=== PATIENT | female | born 1990 | race American Indian/Alaskan Native ===

== ENCOUNTER 2016-10-19 20:42 | Emergency (ER) | payer SELFPAY ==
[2016-10-19 20:42] VITALS: BMI 46.8
[2016-10-19 20:48] VITALS: BP 136/82; PULSE 120; RESP 16; TEMP 97.9; O2SAT 99
[2016-10-19] MEDS ORDERED: Sodium Chloride 0.9% 1,000 ML IV STA (21:13)
--- NOTE | 2016-10-19 21:17 | ED PDOC ---
HPI: Female Pain Time Seen by Provider: 10/19/16 21:02 Chief Complaint (Nursing): Female Genitourinary Chief Complaint (Provider): vaginal bleeding History Per: Patient History/Exam Limitations: no limitations Onset/Duration Of Symptoms: Days (2 weeks) Current Symptoms Are (Timing): Still Present Quality Of Discomfort: Cramping, "Pain" Additional History Per: Patient Additional Complaint(s): 26 y/o female presents with vaginal bleeding x 2 weeks. Associated pelvic cramping/pain. Patient notes today she began to feel weak, shaky, and lightheaded, which prompted ED visit. Patient notes periods usually regular; last 4-5 days then stop. Patient notes bleeding continued since onset of menses 2 weeks ago, using 6 pads daily. Denies headache, nausea/vomiting, chest pain, shortness of breath, palpitations, changes in bowel movements. Abnormal Vaginal Bleeding: Yes Last Menstral Period: 10/05/16 Past Medical History Reviewed: Historical Data, Nursing Documentation, Vital Signs Vital Signs: Last Vital Signs Temp 97.9 F 10/19/16 20:46 Pulse 120 H 10/19/16 20:46 Resp 16 10/19/16 20:46 BP 136/82 10/19/16 20:46 Pulse Ox 99 10/19/16 20:46 - Medical History PMH: Anemia, Asthma, Gastritis - Family History Family History: States: Diabetes, Hypertension - Immunization History Hx Tetanus Toxoid Vaccination: No Hx Influenza Vaccination: Yes Hx Pneumococcal Vaccination: No - Home Medications Home Medications: Ambulatory Orders Medication Instructions Recorded Albuterol HFA [Ventolin HFA 90 1 - 2 puff IH Q6 PRN #1 inhaler 08/05/16 mcg/actuation (8 g)] Omeprazole 20 mg PO DAILY #30 capsule. 09/05/16 Ondansetron [Zofran] 4 mg PO Q8H #12 tab 09/05/16 Naproxen [Naprosyn] 500 mg PO Q12 PRN #20 tablet 10/20/16 - Allergies Allergies/Adverse Reactions: Allergies Allergy/AdvReac Type Severity Reaction Status Date / Time acetaminophen [From Vicodin] AdvReac ITCHING Verified 11/07/15 12:20 hydrocodone bitartrate AdvReac ITCHING Verified 11/07/15 12:20 [From Vicodin] shrimp AdvReac ITCHING Verified 11/07/15 12:20 Review of Systems ROS Statement: Except As Marked, All Systems Reviewed And Found Negative Genitourinary Female: Positive for: Vaginal Bleeding, Pelvic Pain Physical Exam - Reviewed Nursing Documentation Reviewed: Yes Vital Signs Reviewed: Yes - Physical Exam Appears: Positive for: Well, Non-toxic, No Acute Distress Head Exam: Positive for: ATRAUMATIC, NORMAL INSPECTION, NORMOCEPHALIC Skin: Positive for: Normal Color Eye Exam: Positive for: Normal appearance ENT: Positive for: Normal ENT Inspection Cardiovascular/Chest: Positive for: Regular Rate, Rhythm Respiratory: Positive for: Normal Breath Sounds Gastrointestinal/Abdominal: Positive for: Bowel Sounds, Soft, Tenderness ( suprapubic) Pelvic Exam: Positive for: External Exam Normal, Speculum Exam Normal, No Cerv. Motion Tender, Other (exam chaperoned by operating theatre technician Sunshine). Negative for: Active Bleeding Back: Positive for: Normal Inspection Extremity: Positive for: Normal ROM Neurologic/Psych: Positive for: Alert, Oriented - Laboratory Results Result Diagrams: 10/19/16 22:59 10/19/16 22:59 Urine POC: Negative - ECG ECG: Positive for: Viewed By Me (reviewed by ED attending) ECG Rhythm: Positive for: Sinus Rhythm O2 Sat by Pulse Oximetry: 99 - Progress ED Course And Treament: labs, urine, pelvis u/s, tramadol, IV fluids EXAM: US Pelvis Complete. CLINICAL HISTORY: 26 years old, female; Pain and signs and symptoms; Menstruation abnormalities; Excessive menstruation; Other: Prolonged; Pelvic pain; Additional info: Pelvic pain, prolonged vaginal bleeding TECHNIQUE: Real-time pelvic ultrasound (complete) with image documentation. COMPARISON: No relevant prior studies available. FINDINGS: Uterus/cervix: 4.3 x 4.0 x 3.9 cm uterine mass. Endometrium: 0.5 cm in thickness. Right ovary: 2.3 x 2.1 x 2.0 cm anechoic lesion. Normal flow. Left ovary: No mass. Normal flow. Free fluid: No significant free fluid. IMPRESSION: 1. Probable fibroid. 2. RIGHT ovarian cyst. 3. Incidental/non-acute findings are described above. On re-eval, patient states she is feeling better; vitals stable. Patient educated on findings, discharged with rx Naproxen. Advised follow up [facility]. Return to ED for worsening/concerning symptoms. Disposition - Clinical Impression Clinical Impression: Uterine fibroid, Vaginal bleeding, Cyst of ovary - Patient ED Disposition Is Patient to be Admitted: No Counseled Patient/Family Regarding: Studies Performed, Diagnosis, Need For Followup, Rx Given - Disposition [facility] Disposition: Routine/Home Disposition Time: 01:04 Condition: IMPROVED Prescriptions: Naproxen [Naprosyn] 500 mg PO Q12 PRN #20 tablet PRN Reason: Pain, Moderate (4-7) Instructions: Dysfunctional Uterine Bleeding (ED), Uterine Fibroids (ED)
[2016-10-19] MEDS ORDERED: Albuterol-Ipratrop 3 mg / 0.5 (3 ml) UD ONE (22:54)
[2016-10-19] MEDS ORDERED: Albuterol-Ipratrop 3 mg / 0.5 (3 ml) UD IH STA (22:56)
[2016-10-19 23:13] LABS: BASO # 0.1 K/uL (0.0-0.2); EOS # 0.1 K/uL (0.0-0.7); EOS % 1.5 % (0.0-4.0); HEMATOCRIT 35.3 % (34.0-47.0); LYMPH # 3.1 K/uL (1.0-4.3); LYMPH % 33.7 % (20.0-40.0); MEAN CELL VOLUME 75.4 fl (81.0-99.0); MEAN CORPUSCULAR HEMOGLOBIN 24.4 pg (27.0-31.0); MEAN CORPUSCULAR HGB CONC 32.3 g/dL (33.0-37.0); MEAN PLATELET VOLUME 7.9 fl (7.2-11.7); MONO # 0.6 K/uL (0.0-0.8); MONO % 6.6 % (0.0-10.0); NEUT # 5.3 K/uL (1.8-7.0); NEUT % 57.2 % (50.0-75.0); NRBC % 0.1 % (0.0-0.0); RED CELL DISTRIBUTION WIDTH 16.1 % (11.5-14.5); WHITE BLOOD COUNT 9.3 K/uL (4.8-10.8)
[2016-10-19 23:16] LABS: ALKALINE PHOSPHATASE 85 U/L (38-126); ALT/SGPT 36 U/L (9-52); AST/SGOT 46 U/L (14-36); BILIRUBIN,TOTAL 0.5 mg/dl (0.2-1.3); BLOOD UREA NITROGEN 14 mg/dl (7-17); CALCIUM 9.2 mg/dL (8.4-10.2); CARBON DIOXIDE 24 mmol/L (22-30); CHLORIDE 103 mmol/L (98-107); GFR AFRICAN-AMERICAN > 60; GLUCOSE,RANDOM 88 mg/dL (65-105); SODIUM 142 mmol/l (132-148); TOTAL PROTEIN 7.9 G/DL (6.3-8.2)
[2016-10-19 23:37] LABS: RBC URINE 5 /hpf (0-3); URINE BILIRUBIN NEGATIVE (NEGATIVE); URINE BLOOD LARGE (NEGATIVE); URINE COLOR RED (YELLOW); URINE GLUCOSE (UA) NEG (Normal); URINE KETONE NEGATIVE (NEGATIVE); URINE LEUKOCYTE ESTERASE TRACE Leu/uL (Negative); URINE PROTEIN 100 mg/dL (NEGATIVE); URINE UROBILINOGEN 0.2-1.0 mg/dL (0.2-1.0); WBC URINE < 1 /hpf (0-5)
--- NOTE | 2016-10-20 10:31 | US ---
HISTORY: pelvic pain, prolonged vaginal bleeding. Duration of symptoms: 1 month. Menstrual status: Ongoing. Since September 21, 2016. COMPARISON: None available. TECHNIQUE: Transabdominal only. Real-time technique with 2D, duplex and color Doppler FINDINGS: UTERUS: Measures 8.4 x 7.4 cm. Normal in size and appearance. Location of fibroid(s) and size: Fundal to the right of the midline 4.2 x 3.9 cm. ENDOMETRIUM: Measures 4.6 mm in diameter. No ultrasound findings to suggest gestational sac, fluid, debris, mass or polyp or other pathologic process within the endometrium. CERVIX: No cervical abnormality identified. RIGHT OVARY: Measures 3.4 x 2.8 cm. No solid mass. Normal flow. Simple cyst 2.1 x 2.3 cm. LEFT OVARY: Measures 4 x 1.9 cm. No solid mass. Normal flow. FREE FLUID: No significant free fluid noted. OTHER FINDINGS: None. IMPRESSION: Solitary uterine fibroid. Simple cyst right adnexa. Concordant results (preliminary interpretation) provided by [facility]. Procedure Completed: 23:42. Preliminary ([facility]) Report: Dictated and Authenticated: 23:59. Final Interpretation: 10:29. October 20, 2016.
--- NOTE | 2016-10-20 14:02 | CARD ---
APPROVED REPORT EKG Measurement Heart [id number] <Conclusion> Normal sinus rhythm Normal ECG
== END 2016-10-20 01:57 | disposition home or self-care (01) ==
LOC: H.ER 20:42
DX: N93.9 Abnormal uterine and vaginal bleeding, unspecified (principal); D25.9 Leiomyoma of uterus, unspecified; N83.209 Unspecified ovarian cyst, unspecified side; R10.2 Pelvic and perineal pain
CPT/HCPCS: 76856; 80053; 81003; 81025; 85025; 93005; 94640; 99282; J7040

== ENCOUNTER 2016-11-04 20:47 | Emergency (ER) | payer SELFPAY ==
[2016-11-04 20:48] VITALS: BMI 46.8
[2016-11-04 21:08] VITALS: RESP 16
[2016-11-04] MEDS ORDERED: Oxycodone/Acetaminophen 5/325 mg Tab ONE (21:30)
--- NOTE | 2016-11-04 21:33 | ED PDOC ---
HPI: Back Time Seen by Provider: 11/04/16 21:23 Chief Complaint (Nursing): Back Pain Chief Complaint (Provider): Flank/Coccyx Pain s/p Fall History Per: Patient History/Exam Limitations: no limitations Onset/Duration Of Symptoms: Hrs (just prior to arrival) Current Symptoms Are (Timing): Still Present Severity: Moderate Previous Symptoms: None Additional Complaint(s): Hayde Wu is a 26 year old female, with no pertinent past medical history, who presents to the ED on 11/04/16 for evaluation after having fallen down a set of 10 steps just prior to arrival; complaining of b/l flank and coccyx pain upon initial evaluation. Denies head trauma or loss of consciousness. PMD: none Past Medical History Reviewed: Historical Data, Nursing Documentation, Vital Signs Vital Signs: Last Vital Signs Temp 98.0 F 11/04/16 21:04 Pulse 99 H 11/04/16 21:04 Resp 16 11/04/16 21:04 BP 136/87 11/04/16 21:04 Pulse Ox 100 11/04/16 21:04 - Medical History PMH: Anemia, Asthma, Gastritis - Surgical History Surgical History: No Surg Hx - Family History Family History: States: Diabetes, Hypertension - Immunization History Hx Tetanus Toxoid Vaccination: No Hx Influenza Vaccination: Yes Hx Pneumococcal Vaccination: No - Home Medications Home Medications: Ambulatory Orders Medication Instructions Recorded Albuterol HFA [Ventolin HFA 90 1 - 2 puff IH Q6 PRN #1 inhaler 08/05/16 mcg/actuation (8 g)] Omeprazole 20 mg PO DAILY #30 capsule. 09/05/16 Ondansetron [Zofran] 4 mg PO Q8H #12 tab 09/05/16 Naproxen [Naprosyn] 500 mg PO Q12 PRN #20 tablet 10/20/16 - Allergies Allergies/Adverse Reactions: Allergies Allergy/AdvReac Type Severity Reaction Status Date / Time acetaminophen [From Vicodin] AdvReac ITCHING Verified 11/07/15 12:20 hydrocodone bitartrate AdvReac ITCHING Verified 11/07/15 12:20 [From Vicodin] shrimp AdvReac ITCHING Verified 11/07/15 12:20 Review of Systems Musculoskeletal: Positive for: Back Pain (b/l flank, coccyx) Physical Exam - Reviewed Nursing Documentation Reviewed: Yes Vital Signs Reviewed: Yes - Physical Exam Appears: Positive for: Non-toxic, No Acute Distress Head Exam: Positive for: ATRAUMATIC, NORMOCEPHALIC Back: Positive for: Vertebral Tenderness (L4-L5/Sacral tenderness), Other (b/l posterior rib/flank tenderness) Extremity: Positive for: Normal ROM (moving all extremities well). Negative for : Deformity Neurologic/Psych: Positive for: Alert, Oriented - ECG O2 Sat by Pulse Oximetry: 100 (RA) Pulse Ox Interpretation: Normal Medical Decision Making Medical Decision Makin:23 Initial Impression: b/l flank pain, lumbosacral tenderness s/p fall Initial Plan: * CXR * XR LS Spine AP/LAT * Upreg * Udip * Percocet 1 tab PO * Reevaluation 23:20 Pt reports the pain 8/10 motrin ordered. Pt with hematuria s/p fall. CT ordered. Scribe Attestation: Documented by Gabby Cid, acting as a scribe for Kelly Serrano PA-C. Provider Scribe Attestation: All medical record entries made by the Scribe were at my direction and personally dictated by me. I have reviewed the chart and agree that the record accurately reflects my personal performance of the history, physical exam, medical decision making, and the department course for this patient. I have also personally directed, reviewed, and agree with the discharge instructions and disposition. Disposition - Clinical Impression Clinical Impression: Back pain, Fall - Patient ED Disposition Is Patient to be Admitted: Transfer of Care - Disposition Disposition: Transfer of Care Disposition Time: 23:33 Condition: STABLE
[2016-11-04] MEDS: Oxycodone/Acetaminophen 5/325 mg Tab PO STA (21:37)
[2016-11-04 22:29] LABS: RBC URINE 5 /hpf (0-3); URINE BACTERIA RARE (<OCC); URINE BILIRUBIN NEGATIVE (NEGATIVE); URINE BLOOD SMALL (NEGATIVE); URINE COLOR YELLOW (YELLOW); URINE GLUCOSE (UA) NEG (Normal); URINE KETONE NEGATIVE (NEGATIVE); URINE LEUKOCYTE ESTERASE LARGE Leu/uL (Negative); URINE PROTEIN NEGATIVE (NEGATIVE); URINE UROBILINOGEN 0.2-1.0 mg/dL (0.2-1.0); WBC URINE 12 /hpf (0-5)
--- NOTE | 2016-11-05 01:19 | ED PDOC ---
- ECG O2 Sat by Pulse Oximetry: 100 (RA) - Progress ED Course And Treament: EXAM: CT Abdomen and Pelvis Without Intravenous Contrast CLINICAL HISTORY: 26 years old, female; Injury or trauma; Fall; Initial encounter; Blunt; Generalized; Additional info: Fall, hematuria TECHNIQUE: Axial computed tomography images of the abdomen and pelvis without intravenous contrast. This CT exam was performed using one or more of the following dose reduction techniques: automated exposure control, adjustment of the mA and/or kV according to patient size, and/ or use of iterative reconstruction technique. Coronal and sagittal reformatted images were created and reviewed. COMPARISON: US - PELVIS ULTRASOUND 10/19/2016 11:30:49 PM FINDINGS: Lower thorax: There is minimal bibasilar atelectatic change or scarring. ABDOMEN: Liver: There is mild hepatomegaly. Gallbladder and bile ducts: Unremarkable. No calcified stones. No ductal dilation. Pancreas: Unremarkable. No ductal dilation. Spleen: Unremarkable. No splenomegaly. Adrenals: Unremarkable. No mass. Kidneys and ureters: Unremarkable. No obstructing stones. No hydronephrosis. Stomach and bowel: Unremarkable. No obstruction. No mucosal thickening. Appendix: The appendix is unremarkable and seen best on axial image 58 of series 2. PELVIS: Bladder: Unremarkable. No stones. Reproductive: There is a 3 cm left ovarian cyst. ABDOMEN and PELVIS: Intraperitoneal space: Unremarkable. No free air. No significant fluid collection. Bones/joints: No acute fracture. No dislocation. Soft tissues: Unremarkable. Vasculature: There are calcified phleboliths in the pelvis. No abdominal aortic aneurysm. Lymph nodes: Unremarkable. No enlarged lymph nodes. IMPRESSION: 1. There is a 3 cm left ovarian cyst. 2. No visible renal, ureteral or bladder calculi. 3. No acute traumatic CT pathology of the abdomen or pelvis. bedside FAST u/s also performed by Dr. Taveras, no free fluid noted around kidneys , bladder. Patient reports feeling better after pain medications. Patient educated on findings, discharged with rx tramadol, naproxen, macrobid. Rest, warm compresses, follow up PMD 2-3 days. Return to ED for worsening/concerning symptoms. Disposition - Clinical Impression Clinical Impression: Back pain, Fall, UTI (urinary tract infection) - POA Present On Arrival: None - Disposition Disposition: Routine/Home Disposition Time: 01:47 Condition: IMPROVED Prescriptions: Nitrofurantoin Macrocrystals [Macrobid] 100 mg PO BID #14 cap Naproxen [Naprosyn] 500 mg PO Q12 PRN #20 tablet PRN Reason: Pain, Moderate (4-7) traMADol [Ultram] 50 mg PO Q8 PRN #12 tab PRN Reason: Pain, Severe (8-10) Instructions: Urinary Tract Infection in Women (ED), Contusion in Adults (ED), Back Pain (ED) Forms: [facility] ED School/Work Excuse
[2016-11-05 02:51] VITALS: BP 126/80; PULSE 72; TEMP 98.2; O2SAT 98
--- NOTE | 2016-11-05 08:53 | CT ---
PROCEDURE: CT Abdomen and Pelvis without intravenous contrast HISTORY: Fall, hematuria COMPARISON: None. TECHNIQUE: CT scan of the abdomen and pelvis was performed without administration of oral or intravenous contrast. Coronal and sagittal reformatted images were obtained. Radiation dose: Total exam DLP = 989.24 mGy-cm. This CT exam was performed using one or more of the following dose reduction techniques: Automated exposure control, adjustment of the mA and/or kV according to patient size, and/or use of iterative reconstruction technique. FINDINGS: LOWER THORAX: The lung bases are clear. LIVER: There is mild hepatomegaly. No gross lesion or ductal dilatation. GALLBLADDER AND BILE DUCTS: The gallbladder is contracted. PANCREAS: The pancreas is normal in size. No gross lesion or ductal dilatation. SPLEEN: The spleen is normal in size. ADRENALS: Both adrenal glands are normal in size without discrete nodule. KIDNEYS AND URETERS: Both kidneys are normal in size. There is no hydronephrosis or nephrolithiasis. VASCULATURE: No aortic aneurysm. BOWEL: The small bowel loops are normal in caliber. There is moderate amount of stool in the colon and fecalization of distal small bowel contents. APPENDIX: Normal appendix. PERITONEUM: No free fluid. No free air. LYMPH NODES: No enlarged lymph nodes. BLADDER: Unremarkable. REPRODUCTIVE: The uterus is normal in size. There is a 4.0 cm simple cyst in the left ovary. BONES: No acute fracture. Within normal limits for the patient's age. OTHER FINDINGS: None. IMPRESSION: 1. No evidence of perinephric hematoma, hydronephrosis or hemoperitoneum. No acute fractures. 2. 4.0 cm simple cyst in the left ovary. A preliminary report was provided by [email or web address].
--- NOTE | 2016-11-05 10:25 | RAD ---
HISTORY: pain s/p fall bilateral flank COMPARISON: 08/05/2016 TECHNIQUE: Chest PA and lateral FINDINGS: LUNGS: No active pulmonary disease. PLEURA: No significant pleural effusion identified. No pneumothorax apparent. CARDIOVASCULAR: Normal. OSSEOUS STRUCTURES: No significant abnormalities. VISUALIZED UPPER ABDOMEN: Normal. OTHER FINDINGS: None. IMPRESSION: No active disease.
--- NOTE | 2016-11-05 10:37 | RAD ---
PROCEDURE: Radiographs of the Lumbar Spine. HISTORY: L4-L5 pain COMPARISON: No prior. FINDINGS: BONES: Normal alignment. No listhesis. No fracture. DISC SPACES: Unremarkable. OTHER FINDINGS: None. IMPRESSION: Unremarkable radiographs of the lumbar spine.
== END 2016-11-05 02:51 | disposition home or self-care (01) ==
LOC: H.ER 20:47
DX: M54.9 Dorsalgia, unspecified (principal); W10.9XXA Fall (on) (from) unspecified stairs and steps, initial encounter; Y92.89 Other specified places as the place of occurrence of the external cause; N39.0 Urinary tract infection, site not specified; R31.9 Hematuria, unspecified

== ENCOUNTER 2016-11-22 17:35 | Emergency (ER) | payer SELFPAY ==
[2016-11-22 17:36] VITALS: BMI 46.8
[2016-11-22 17:51] VITALS: PULSE 102; RESP 20; TEMP 98.4; O2SAT 98
[2016-11-22 17:53] VITALS: BP 146/92
[2016-11-22] MEDS ORDERED: Iohexol 240 (50 ml) PO ONE (18:16)
--- NOTE | 2016-11-22 18:21 | ED PDOC ---
HPI: Abdomen Time Seen by Provider: 11/22/16 18:19 Chief Complaint (Nursing): Abdominal Pain Chief Complaint (Provider): RECTAL BLEEDING History Per: Patient (26 Y/O FEMALE WHO NOTES RED STOOL TODAY. NOTES SHE HAD SOME SHAKE BELONGING TO FRIEND AT WORK THAT HAD MULTIPLE RED FRUITS/VEGETABLES. NOTES CRAMPING IN LOWER ABDOMEN CURRENTLY. DENIES ANY DYSURIA/URINARY FREQUENCY/FEVERS/CHILLS/DIARRHEA/CONSTIPATION.) Past Medical History Reviewed: Historical Data, Nursing Documentation, Vital Signs Vital Signs: Last Vital Signs Temp 98.4 F 11/22/16 17:49 Pulse 102 H 11/22/16 17:49 Resp 20 11/22/16 17:49 BP 146/92 H 11/22/16 17:52 Pulse Ox 98 11/22/16 18:22 - Medical History PMH: Anemia, Asthma, Gastritis - Family History Family History: States: Diabetes, Hypertension - Immunization History Hx Tetanus Toxoid Vaccination: No Hx Influenza Vaccination: Yes Hx Pneumococcal Vaccination: No - Home Medications Home Medications: Ambulatory Orders Medication Instructions Recorded Albuterol HFA [Ventolin HFA 90 1 - 2 puff IH Q6 PRN #1 inhaler 08/05/16 mcg/actuation (8 g)] Omeprazole 20 mg PO DAILY #30 capsule. 09/05/16 Ondansetron [Zofran] 4 mg PO Q8H #12 tab 09/05/16 Naproxen [Naprosyn] 500 mg PO Q12 PRN #20 tablet 10/20/16 Naproxen [Naprosyn] 500 mg PO Q12 PRN #20 tablet 11/05/16 Nitrofurantoin Macrocrystals 100 mg PO BID #14 cap 11/05/16 [Macrobid] traMADol [Ultram] 50 mg PO Q8 PRN #12 tab 11/05/16 Docusate Sodium [Colace] 100 mg PO BID #20 capsule 11/22/16 Phosphate Enema [Fleet Enema 135 135 ml RC ONCE PRN #1 nma 11/22/16 Ml] - Allergies Allergies/Adverse Reactions: Allergies Allergy/AdvReac Type Severity Reaction Status Date / Time acetaminophen [From Vicodin] AdvReac ITCHING Verified 11/07/15 12:20 hydrocodone bitartrate AdvReac ITCHING Verified 04/14/16 12:20 [From Vicodin] shrimp AdvReac ITCHING Verified 11/07/15 12:20 Review of Systems ROS Statement: Except As Marked, All Systems Reviewed And Found Negative Gastrointestinal: Positive for: Abdominal Pain, Other (RECTAL BLEEDING) Physical Exam - Reviewed Nursing Documentation Reviewed: Yes Vital Signs Reviewed: Yes - Physical Exam Appears: Positive for: Well, Non-toxic, No Acute Distress Head Exam: Positive for: ATRAUMATIC, NORMAL INSPECTION, NORMOCEPHALIC Skin: Positive for: Normal Color, Warm, DRY Eye Exam: Positive for: EOMI, Normal appearance, PERRL ENT: Positive for: Normal ENT Inspection Neck: Positive for: Normal, Painless ROM Cardiovascular/Chest: Positive for: Regular Rate, Rhythm Respiratory: Positive for: CNT, Normal Breath Sounds Gastrointestinal/Abdominal: Positive for: Normal Exam, Bowel Sounds, Soft, Tenderness (MINIMAL TENDERNESS NOTED LEFT LOWER QUADRANT) Back: Positive for: Normal Inspection Rectal: Positive for: Other (PINK HUE NOTED WITH RECTAL EXAM. HEMACCULT NEGATIVE.). Negative for: Black Stool, Hemorrhoids Extremity: Positive for: Normal ROM Neurologic/Psych: Positive for: Alert, Oriented - Laboratory Results Result Diagrams: 11/22/16 18:30 11/22/16 18:30 Urine POC: Negative Urine dip results: Positive for: Leukocyte Esterase, Blood. Negative for: Nitrate, Ketones, Glucose, Bilirubin, Protein - ECG O2 Sat by Pulse Oximetry: 98 - Progress ED Course And Treament: OBSTRUCTIVE SERIES: MODERATE STOOL NOTED Disposition - Clinical Impression Clinical Impression: Abdominal pain - Patient ED Disposition Is Patient to be Admitted: No - Disposition Referrals: Jason Chacko MD [Staff Provider] - Disposition: Routine/Home Disposition Time: 19:38 Condition: FAIR Prescriptions: Docusate Sodium [Colace] 100 mg PO BID #20 capsule Phosphate Enema [Fleet Enema 135 Ml] 135 ml RC ONCE PRN #1 nma PRN Reason: Constipation Instructions: Constipation (DC), High Fiber Diet (ED), Rectal Bleeding (DC)
[2016-11-22 18:42] LABS: BASO # 0.1 K/uL (0.0-0.2); BASO % 1.1 % (0.0-2.0); EOS # 0.3 K/uL (0.0-0.7); EOS % 3.6 % (0.0-4.0); HEMATOCRIT 35.4 % (34.0-47.0); LYMPH # 2.6 K/uL (1.0-4.3); LYMPH % 28.1 % (20.0-40.0); MEAN CORPUSCULAR HEMOGLOBIN 24.6 pg (27.0-31.0); MEAN CORPUSCULAR HGB CONC 32.4 g/dL (33.0-37.0); MEAN PLATELET VOLUME 7.7 fl (7.2-11.7); MONO # 0.8 K/uL (0.0-0.8); MONO % 8.8 % (0.0-10.0); NEUT # 5.5 K/uL (1.8-7.0); NEUT % 58.4 % (50.0-75.0); NRBC % 0.1 % (0.0-0.0); WHITE BLOOD COUNT 9.4 K/uL (4.8-10.8)
[2016-11-22 18:48] LABS: ALKALINE PHOSPHATASE 71 U/L (38-126); ALT/SGPT 34 U/L (9-52); AST/SGOT 50 U/L (14-36); BILIRUBIN,TOTAL 0.6 mg/dl (0.2-1.3); BLOOD UREA NITROGEN 13 mg/dl (7-17); CALCIUM 9.2 mg/dL (8.4-10.2); CARBON DIOXIDE 28 mmol/L (22-30); CHLORIDE 105 mmol/L (98-107); GFR AFRICAN-AMERICAN > 60; GLUCOSE,RANDOM 101 mg/dL (65-105); POTASSIUM 3.9 MMOL/L (3.6-5.0); SODIUM 140 mmol/l (132-148)
[2016-11-22 18:49] LABS: RBC URINE 2 /hpf (0-3); URINE BACTERIA RARE (<OCC); WBC URINE 13 /hpf (0-5)
[2016-11-22 18:50] LABS: URINE BILIRUBIN NEGATIVE (NEGATIVE); URINE BLOOD NEGATIVE (NEGATIVE); URINE COLOR YELLOW (YELLOW); URINE GLUCOSE (UA) NEG (Normal); URINE KETONE NEGATIVE (NEGATIVE); URINE PROTEIN NEGATIVE (NEGATIVE); URINE UROBILINOGEN 0.2-1.0 mg/dL (0.2-1.0)
[2016-11-22 18:59] LABS: URINE LEUKOCYTE ESTERASE MODERATE Leu/uL (Negative)
--- NOTE | 2016-11-23 13:43 | RAD ---
PROCEDURE: Radiographs of the chest and abdomen (obstructive series) HISTORY: ABDOMINAL PAIN COMPARISON: No prior. TECHNIQUE: AP radiograph of the chest, with upright and supine radiographs of the abdomen. FINDINGS: CHEST: Lungs: Clear. Cardiovascular: Normal size heart. No pulmonary vascular congestion. Pleura: No pleural fluid. No pneumothorax. Other findings: None. ABDOMEN AND PELVIS: Bowel: Unremarkable bowel gas pattern. No evidence of mechanical obstruction. Free air: None. Bones: Unremarkable. Other findings: Small foci of calcification in the pelvis likely represent phleboliths. IMPRESSION: Unremarkable radiographs of chest and abdomen. No evidence of mechanical bowel obstruction.
== END 2016-11-22 20:00 | disposition home or self-care (01) ==
LOC: H.ER 17:35
DX: R10.9 Unspecified abdominal pain (principal); K59.00 Constipation, unspecified; J45.909 Unspecified asthma, uncomplicated

== ENCOUNTER 2017-01-24 23:45 | Emergency (ER) | payer SELFPAY ==
[2017-01-24 23:46] VITALS: BMI 46.8
[2017-01-24 23:50] VITALS: O2SAT 100
[2017-01-25] MEDS ORDERED: Albuterol-Ipratrop 3 mg / 0.5 (3 ml) UD ONE (00:02)
[2017-01-25] MEDS ORDERED: Albuterol-Ipratrop 3 mg / 0.5 (3 ml) UD INH STA (00:07)
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
[2017-01-25 00:20] LABS: ABG ALLEN TEST YES; ARTERIAL BLOOD GAS HCO3 24.6 mmol/L (21-28); ARTERIAL BLOOD GAS O2 SAT 100.1 % (95-98); ARTERIAL BLOOD GAS PCO2 31 mm/Hg (35-45); ARTERIAL BLOOD GAS PH 7.47 (7.35-7.45); ARTERIAL BLOOD GAS PO2 164 mm/Hg (80-100); ARTERIAL BLOOD GAS TCO2 23.6 mmol/L (22-28); VENOUS BLOOD GAS BASE EXCESS -0.4 mmol/L (0.0-2.0); VENOUS BLOOD GAS PCO2 31 mmHg (40-60); VENOUS BLOOD GAS PO2 164 mm/Hg (30-55); VENOUS BLOOD PH 7.47 (7.32-7.43)
[2017-01-25 00:27] VITALS: BP 117/71; TEMP 98
[2017-01-25 01:46] VITALS: PULSE 99
[2017-01-25 01:47] VITALS: RESP 18
--- NOTE | 2017-01-28 06:57 | CARD ---
APPROVED REPORT EKG Measurement Heart [id number] <Conclusion> Sinus tachycardia Possible Left atrial enlargement Borderline ECG
== END 2017-01-25 01:45 | disposition home or self-care (01) ==
LOC: H.ER 23:45
DX: J70.5 Respiratory conditions due to smoke inhalation (principal); X00.0XXA Exposure to flames in uncontrolled fire in building or structure, initial encounter; D57.3 Sickle-cell trait; J45.901 Unspecified asthma with (acute) exacerbation

== ENCOUNTER 2017-05-20 16:26 | Emergency (ER) | payer SELFPAY ==
[2017-05-20 16:27] VITALS: BMI 46.8
[2017-05-20 16:42] VITALS: BP 107/72; PULSE 89; RESP 18; TEMP 98; O2SAT 97
[2017-05-20 17:35] LABS: BASO # 0.1 K/uL (0.0-0.2); BASO % 1.3 % (0.0-2.0); EOS # 0.4 K/uL (0.0-0.7); EOS % 4.7 % (0.0-4.0); LYMPH # 3.7 K/uL (1.0-4.3); LYMPH % 42.1 % (20.0-40.0); MEAN CELL VOLUME 76.2 fl (81.0-99.0); MEAN CORPUSCULAR HEMOGLOBIN 24.1 pg (27.0-31.0); MEAN CORPUSCULAR HGB CONC 31.6 g/dL (33.0-37.0); MEAN PLATELET VOLUME 7.9 fl (7.2-11.7); MONO # 0.6 K/uL (0.0-0.8); MONO % 7.1 % (0.0-10.0); NEUT # 3.9 K/uL (1.8-7.0); NEUT % 44.8 % (50.0-75.0); NRBC % 0.1 % (0.0-0.0); RED CELL DISTRIBUTION WIDTH 15.5 % (11.5-14.5); WHITE BLOOD COUNT 8.7 K/uL (4.8-10.8)
[2017-05-20 17:51] LABS: RBC URINE 10 /hpf (0-3); URINE BACTERIA RARE (<OCC); URINE BILIRUBIN NEGATIVE (NEGATIVE); URINE BLOOD NEGATIVE (NEGATIVE); URINE COLOR YELLOW (YELLOW); URINE GLUCOSE (UA) NEG (Normal); URINE KETONE NEGATIVE (NEGATIVE); URINE LEUKOCYTE ESTERASE LARGE Leu/uL (Negative); URINE PROTEIN NEGATIVE (NEGATIVE); URINE UROBILINOGEN 0.2-1.0 mg/dL (0.2-1.0); WBC URINE 15 /hpf (0-5)
[2017-05-20 18:07] LABS: ALB/GLOB RATIO 1.2 (1.0-2.1); ALKALINE PHOSPHATASE 73 U/L (38-126); ALT/SGPT 37 U/L (9-52); AST/SGOT 40 U/L (14-36); BILIRUBIN,TOTAL 0.3 mg/dl (0.2-1.3); BLOOD UREA NITROGEN 10 mg/dl (7-17); CALCIUM 9.3 mg/dL (8.4-10.2); CARBON DIOXIDE 23 mmol/L (22-30); CHLORIDE 106 mmol/L (98-107); GFR AFRICAN-AMERICAN > 60; GLUCOSE,RANDOM 93 mg/dL (65-105); POTASSIUM 3.9 MMOL/L (3.6-5.0); SODIUM 142 mmol/l (132-148)
[2017-05-20] MEDS ORDERED: cefTRIAXone IV 1 gm in Dextros 50 ML IVPB STA (18:21)
--- NOTE | 2017-05-20 18:54 | ED PDOC ---
HPI: General Adult Time Seen by Provider: 05/20/17 16:56 Chief Complaint (Nursing): Flu-like Symptoms Chief Complaint (Provider): body aches History Per: Patient History/Exam Limitations: no limitations Additional Complaint(s): 27yo F in ED for eval of diffuse body aches, subjective fever chills and headache.no abd pain, dysuria hematuira sore throat cough ear pain sick contacts. Past Medical History Reviewed: Historical Data, Nursing Documentation, Vital Signs Vital Signs: Last Vital Signs Temp 98 F 05/20/17 16:39 Pulse 89 05/20/17 16:39 Resp 18 05/20/17 16:39 BP 107/72 05/20/17 16:39 Pulse Ox 97 05/20/17 19:00 - Medical History PMH: Anemia, Asthma, Gastritis, Migraine, Sickle Cell Disease (Sickle cell trait ) - Family History Family History: States: Diabetes, Hypertension - Immunization History Hx Tetanus Toxoid Vaccination: No Hx Influenza Vaccination: Yes Hx Pneumococcal Vaccination: No - Home Medications Home Medications: Ambulatory Orders Medication Instructions Recorded Albuterol HFA [Ventolin HFA 90 1 - 2 puff IH Q6 PRN #1 inhaler 08/05/16 mcg/actuation (8 g)] Omeprazole 20 mg PO DAILY #30 capsule. 09/05/16 Ondansetron [Zofran] 4 mg PO Q8H #12 tab 09/05/16 Naproxen [Naprosyn] 500 mg PO Q12 PRN #20 tablet 10/20/16 Naproxen [Naprosyn] 500 mg PO Q12 PRN #20 tablet 11/05/16 Nitrofurantoin Macrocrystals 100 mg PO BID #14 cap 11/05/16 [Macrobid] traMADol [Ultram] 50 mg PO Q8 PRN #12 tab 11/05/16 Docusate Sodium [Colace] 100 mg PO BID #20 capsule 11/22/16 Phosphate Enema [Fleet Enema 135 135 ml RC ONCE PRN #1 nma 11/22/16 Ml] Nitrofurantoin Macrocrystals 100 mg PO BID #14 cap 05/20/17 [Macrobid] - Allergies Allergies/Adverse Reactions: Allergies Allergy/AdvReac Type Severity Reaction Status Date / Time acetaminophen [From Vicodin] AdvReac ITCHING Verified 11/07/15 12:20 hydrocodone bitartrate AdvReac ITCHING Verified 05/20/17 16:37 [From Vicodin] shrimp AdvReac ITCHING Verified 11/07/15 12:20 Review of Systems ROS Statement: Except As Marked, All Systems Reviewed And Found Negative Constitutional: Positive for: Fever, Chills, Malaise ENT: Negative for: Ear Pain, Ear Discharge, Nose Pain, Nose Discharge, Nose Congestion, Mouth Pain, Mouth Swelling, Throat Pain, Throat Swelling Cardiovascular: Negative for: Chest Pain, Palpitations Respiratory: Negative for: Cough, Shortness of Breath Gastrointestinal: Negative for: Nausea, Vomiting, Abdominal Pain, Diarrhea, Constipation Genitourinary Female: Negative for: Dysuria, Hematuria Skin: Negative for: Rash Physical Exam - Reviewed Nursing Documentation Reviewed: Yes Vital Signs Reviewed: Yes - Physical Exam Appears: Positive for: Non-toxic, No Acute Distress, Uncomfortable Head Exam: Positive for: ATRAUMATIC, NORMAL INSPECTION, NORMOCEPHALIC Skin: Positive for: Normal Color, Warm, DRY Eye Exam: Positive for: EOMI, Normal appearance, PERRL ENT: Positive for: Normal ENT Inspection Neck: Positive for: Normal, Painless ROM Cardiovascular/Chest: Positive for: Regular Rate, Rhythm Respiratory: Positive for: CNT, Normal Breath Sounds Gastrointestinal/Abdominal: Positive for: Normal Exam, Bowel Sounds, Soft. Negative for: Tenderness Back: Positive for: Normal Inspection. Negative for: L CVA Tenderness, R CVA Tenderness Extremity: Positive for: Normal ROM Lymphatic: Positive for: Normal Exam Neurologic/Psych: Positive for: Alert, Oriented - Laboratory Results Result Diagrams: 05/20/17 17:20 05/20/17 17:20 - ECG O2 Sat by Pulse Oximetry: 97 - Progress ED Course And Treament: viral vs bacterial infection will order: Orders Category Date Time Status COMP METABOLIC PANEL Stat Chem 05/20/17 17:20 Completed ED Urine (POC) Stat ED Care 05/20/17 17:38 Ordered CBC (WITH DIFFERENTIAL) Stat MARQUES 05/20/17 17:20 Completed Ibuprofen [Motrin Tab] Med 05/20/17 17:53 Discontinued 600 mg .ROUTE .STK-MED ONE Ibuprofen [Motrin Tab] Med 05/20/17 17:04 Discontinued 600 mg PO STAT STA cefTRIAXone IV 1 gm in Dextros [Rocephin IV 1 gm Duplex Med 05/20/17 18:55 Discontinued ] 50 ml IVPB .STK-MED cefTRIAXone IV 1 gm in Dextros [Rocephin IV 1 gm Duplex Med 05/20/17 18:21 Active ] 50 ml IVPB STAT INFLUENZA A B Stat Serology 05/20/17 17:20 Received UA [URINALYSIS] Stat URINALYSIS 05/20/17 17:40 Completed Medical Decision Making Medical Decision Making: lab results: no evidence of WBC on CBC, however UA shows: UTI. Pt is symptomatic with body aches, subjective fever however VS: pt doens not required admission at this time-will get Rocephin IV in 1gm in ED and and d/c with macrobid with pmd f.u flu is negative. Vital Signs - 24 hr 05/20/17 05/20/17 16:39 18:56 Temperature 98 F Pulse Rate 89 Respiratory 18 Rate Blood Pressure 107/72 O2 Sat by Pulse 97 97 Oximetry Laboratory Results - last 72 hr 05/20/17 05/20/17 05/20/17 17:20 17:20 17:40 WBC 8.7 RBC 4.72 Hgb 11.4 L Hct 36.0 MCV 76.2 L MCH 24.1 L MCHC 31.6 L RDW 15.5 H Plt Count 428 H MPV 7.9 Neut % (Auto) 44.8 L Lymph % (Auto) 42.1 H [place] % (Auto) 7.1 Eos % (Auto) 4.7 H Baso % (Auto) 1.3 Neut # 3.9 Lymph # 3.7 [place] # 0.6 Eos # 0.4 Baso # 0.1 Sodium 142 Potassium 3.9 Chloride 106 Carbon Dioxide 23 Anion Gap 17 BUN 10 Creatinine 0.6 L Est GFR ( Amer) > 60 Est GFR (Non-Af Amer) > 60 Random Glucose 93 Calcium 9.3 Total Bilirubin 0.3 AST 40 H ALT 37 Alkaline Phosphatase 73 Total Protein 8.0 Albumin 4.4 Globulin 3.6 Albumin/Globulin Ratio 1.2 Urine Color Yellow Urine Clarity Cloudy Urine pH 5.0 Ur Specific [place] 1.016 Urine Protein Negative Urine Glucose (UA) Neg Urine Ketones Negative Urine Blood Negative Urine Nitrate Negative Urine Bilirubin Negative Urine Urobilinogen 0.2-1.0 Ur Leukocyte Esterase Large Urine RBC (Auto) 10 H Urine Microscopic WBC 15 H Ur Squamous Epith Cells 20 H Urine Bacteria Rare Disposition - Clinical Impression Clinical Impression: Urinary tract disease - Patient ED Disposition Is Patient to be Admitted: No Counseled Patient/Family Regarding: Studies Performed, Diagnosis, Need For Followup, Rx Given - Disposition Disposition: Routine/Home Disposition Time: 19:12 Condition: STABLE Prescriptions: Nitrofurantoin Macrocrystals [Macrobid] 100 mg PO BID #14 cap Instructions: Urinary Tract Infection in Women (ED) Forms: [facility] (Indonesian)
[2017-05-20] MEDS ORDERED: cefTRIAXone IV 1 gm in Dextros 50 ML IVPB ONE (18:55)
[2017-05-20] MEDS ORDERED: Fluconazole 150 MG TAB PO ONE (19:11)
== END 2017-05-20 20:14 | disposition home or self-care (01) ==
LOC: H.ER 16:26
DX: N39.0 Urinary tract infection, site not specified (principal); D57.3 Sickle-cell trait; J45.909 Unspecified asthma, uncomplicated
CPT/HCPCS: 80053; 81003; 81025; 85025; 87804; 96365; 99282; J0696

== ENCOUNTER 2017-07-28 20:00 | Emergency (ER) | payer SELFPAY ==
[2017-07-28 20:00] VITALS: BMI 46.8
[2017-07-28 20:12] VITALS: BP 116/75; PULSE 98; RESP 16; TEMP 98.3; O2SAT 100
== END 2017-07-28 21:36 | disposition left against medical advice (07) ==
LOC: H.ER 20:00
DX: Z02.89 Encounter for other administrative examinations (principal)